=== PATIENT | male | born 1990 ===

== ENCOUNTER 2018-10-18 08:37 | Outpatient (CLI) | payer OTHER | END 2018-10-18 17:37 | disposition home or self-care (01) | LOC: LAB 08:37 | DX: J11.1 Influenza due to unidentified influenza virus with other respiratory manifestations (principal); J06.9 Acute upper respiratory infection, unspecified; R05 Cough ==

== ENCOUNTER 2018-12-27 12:41 | Outpatient (CLI) | payer OTHER | END 2018-12-27 12:50 | disposition home or self-care (01) | LOC: MRI 12:41 | DX: S32.010A Wedge compression fracture of first lumbar vertebra, initial encounter for closed fracture (principal) | CPT/HCPCS: 72148 ==

== ENCOUNTER 2019-05-03 07:42 | Outpatient (CLI) | payer OTHER | END 2019-05-03 09:20 | disposition home or self-care (01) | LOC: LAB 07:42 | DX: J11.1 Influenza due to unidentified influenza virus with other respiratory manifestations (principal); J11.81 Influenza due to unidentified influenza virus with encephalopathy ==